=== PATIENT | female | born 1990 | race Caucasian/White ===

== ENCOUNTER 2016-08-05 16:19 | Emergency (ER) | payer BC ==
[2016-08-05 17:23] VITALS: BP 120/81
--- NOTE | 2016-08-07 16:24 | UC ---
Terrence Brown Michael, scribed for Mona Man MD on 08/05/16 at 1824 . Abdominal Pain Female HPI - HPI Summary HPI Summary: 25 y/o female comes to [facility] after a colposcopy this morning. Currently c/o vaginal bleeding w/ some clots and cramping. She will be following up with Dr. Barraza and her next OB appointment is on September 09. The pt has an estimated gestational age of 5 weeks, and since the colposcopy she has presented with cramping abd pain and vaginal bleeding. She states passing clots and bled through 2 pads. The pt denies DEAN, cough, sore throat, dysuria, and rash. - History of Current Complaint Chief Complaint: UCGeneralIllness Stated Complaint: PREG-VAG BLEEDING/PAIN Time Seen by Provider: 08/05/16 17:09 Hx Obtained From: Patient, Medical Records ?: Yes Onset/Duration: Sudden Onset, Still Present Severity Initially: Moderate Severity Currently: Moderate Pain Intensity: 5 Pain Scale Used: 0-10 Numeric Radiates: No Character: Cramping Associated Signs and Symptoms: Positive: Negative - No DEAN. no cough. no sore throat. no dysuria. no rash., Vaginal Bleeding Allergies/Adverse Reactions: Allergies Allergy/AdvReac Type Severity Reaction Status Date / Time Azithromycin Allergy VOMITING, Verified 08/05/16 17:17 SEVERE ABDOMINAL CRAMPS Cat Hair Extract Allergy Sneezing Verified 08/05/16 17:17 Doxycycline Allergy Unknown Verified 08/05/16 17:17 Reaction Details Dust Mite Extract Allergy Sneezing Verified 08/05/16 17:17 Molds & Smuts Allergy Runny Nose Verified 08/05/16 17:17 Pollen Extract Allergy Sneezing Verified 08/05/16 17:17 Shellfish Allergy Allergy SHARP PAIN Verified 08/05/16 17:17 IN CHEST AND SHORTNESS OF BREATH Home Medications: Home Medications Amitriptyline TAB* [Elavil TAB*] 10 mg PO 08/05/16 [History] Hyoscyamine ER (NF) [Levbid (NF)] 08/05/16 [History] LevoCETirizine TAB (NF) [Xyzal TAB (NF)] 1 tab DAILY 08/05/16 [History Confirmed 08/05/16] Vitamin [Calna] 1 tab DAILY 08/05/16 [History Confirmed 08/05/16] PMH/Surg Hx/FS Hx/Imm Hx Previously Healthy: Yes Endocrine History Of: Denies: Diabetes Cardiovascular History Of: Denies: Hypertension, Congestive Heart Failure Respiratory History Of: Reports: Asthma, Bronchitis - X 4 IN 2011 GI/ History Of: Denies: Renal Disease Neurological History Of: Reports: Migraine - 4 PER MONTH/ PRN AXERT - Surgical History Surgical History: Yes Surgery Procedure, Year, and Place: LOCAL- FOR REMOVAL MOLES. WISDOM TEETH. Tonsils - Family History Known Family History: Positive: None Family History: no anesthesia reaction - Social History Occupation: Employed Full-time Lives: With Family Alcohol Use: None Substance Use Type: None Smoking Status (MU): Never Smoked Tobacco - Immunization History Most Recent Influenza Vaccination: None Most Recent Tetanus Shot: UTD Most Recent Pneumonia Vaccination: N/A Review of Systems Constitutional: Fatigue Skin: Rash Eyes: Negative ENT: Negative Respiratory: Negative Cardiovascular: Negative Gastrointestinal: Abdominal Pain Genitourinary: Other - vaginal bleeding Motor: Negative Neurovascular: Negative Musculoskeletal: Negative Neurological: Negative Psychological: Negative All Other Systems Reviewed And Are Negative: Yes Physical Exam Triage Information Reviewed: Yes Appearance: Well-Nourished Vital Signs: Initial Vital Signs Temp 99.2 F 08/05/16 17:17 Pulse 89 08/05/16 17:17 Resp 18 08/05/16 17:17 BP 120/81 08/05/16 17:17 Pulse Ox 100 08/05/16 17:17 Vital Signs Reviewed: Yes Eye Exam: Normal ENT Exam: Normal Neck exam: Normal - no adenopathy appreciated. Respiratory Exam: Normal Respiratory: Positive: Chest non-tender, Lungs clear, Normal breath sounds, Other: - no dyspnea. no tachypnea. nml repiratory rate. Cardiovascular: Positive: RRR, No Murmur, Pulses Normal, Brisk Capillary Refill Abdomen Description: Positive: No Organomegaly, Soft. Negative: Nontender - lower pelvis-diffuse tenderness with no rebound or guarding., CVA Tenderness (R) , CVA Tenderness (L) Bowel Sounds: Positive: Present Musculoskeletal Exam: Normal Musculoskeletal: Positive: Strength Intact Neurological Exam: Normal - nonfocal. grossly intact. Psychological Exam: Normal - conversing easily Psychological: Positive: Age Appropriate Behavior Skin Exam: Normal - no rashes but several moles incidentally noticed (following pu with her telegraph mechanic) Abd Pain Female Course/Dx - Course Course Of Treatment: Urine Analysis results-[id number] and pt is in the bathroom 1809. Consulted with Aleida Castro at 1809 about transfer to [facility] [place] [facility]. POC Urine -positive. Advise Emergency Department eval and treatment. EMS encouraged, bu Ms. Multani politely but firmly declines. Family will drive. AMA for EMS. Questions answered to the best of my ability. - Differential Dx/Diagnosis Provider Diagnoses: Vaginal bleeding in Discharge - Discharge Plan Condition: Stable Disposition: AGAINST MEDICAL ADVICE Referrals: Mode Ramirez MD [Primary Care Provider] - The documentation as recorded by the Terrence stevens Michael accurately reflects the service I personally performed and the decisions made by me, Mona Man MD.
== END 2016-08-05 18:32 | disposition left against medical advice (07) ==
LOC: UCEAST 16:19
DX: O20.9 Hemorrhage in early pregnancy, unspecified (principal); G43.909 Migraine, unspecified, not intractable, without status migrainosus; Z88.3 Allergy status to other anti-infective agents; Z91.013 Allergy to seafood; J45.909 Unspecified asthma, uncomplicated; Z87.09 Personal history of other diseases of the respiratory system; Z3A.01 Less than 8 weeks gestation of pregnancy
CPT/HCPCS: 84702; 99212; G0463

== ENCOUNTER 2016-08-05 18:51 | Emergency (ER) | payer BC ==
[2016-08-05] MEDS ORDERED: Acetaminophen TAB* 325 MG PO ONE (20:30)
[2016-08-05] MEDS ORDERED: HYDROcodone/ACETAMIN 5-325 MG* 1 TAB PO ONE (20:57)
[2016-08-05 21:12] VITALS: BP 100/66
--- NOTE | 2016-08-06 00:45 | ED ---
- HPI Summary HPI Summary: Patient arrives to ED 5 weeks and sent here by with CC of vaginal bleeding. She had a colposcopy this morning without a biopsy perfomed by Dr Barraza. She states she had some bleeding 5 days ago after intercourse which was a "moderate" amount. The last few days she notes to minimal spotting. Today, s /p colposcopy she had a moderate amount of bleeding. She states she bled through 2 panty liners. Denies DEAN, weakness, fever, chills or sweats. She has 5/10 pain with cramping in her lower abdomen which does not radiate. - History of Current Complaint Chief Complaint: EDAbdPain Stated Complaint: CRAMPING AND BLEEDING Time Seen by Provider: 08/05/16 19:55 Hx Obtained From: Patient Chief Complaint: Concern for Embryonic Dem, Pain, Vaginal Bleeding Onset/Duration: Started Days Ago Timing: Intermittent Severity: Moderate Current Severity: Moderate Pain Intensity: 4 Location of Pain: Left Side, Groin, Suprapubic Character: None Aggravating Factors: [place] Alleviating Factors: Heat Associated Signs and Symptoms: Positive: Vaginal Bleeding or Discharge - Assessment Hx Now: Yes - Allergies/Home Medications Allergies/Adverse Reactions: Allergies Allergy/AdvReac Type Severity Reaction Status Date / Time Azithromycin Allergy VOMITING, Verified 08/05/16 17:17 SEVERE ABDOMINAL CRAMPS Cat Hair Extract Allergy Sneezing Verified 08/05/16 17:17 Doxycycline Allergy Unknown Verified 08/05/16 17:17 Reaction Details Dust Mite Extract Allergy Sneezing Verified 08/05/16 17:17 Molds & Smuts Allergy Runny Nose Verified 08/05/16 17:17 Pollen Extract Allergy Sneezing Verified 08/05/16 17:17 Shellfish Allergy Allergy SHARP PAIN Verified 08/05/16 17:17 IN CHEST AND SHORTNESS OF BREATH PMH/Surg Hx/FS Hx/Imm Hx Previously Healthy: Yes Endocrine/Hematology History: Reports: Hx Anemia - HX OF IN THE PAST Denies: Hx Diabetes Cardiovascular History: Denies: Hx Congestive Heart Failure, Hx Hypertension Respiratory History: Reports: Hx Asthma History: Denies: Hx Renal Disease Sensory History: Denies: Hx Contacts or Glasses, Hx Hearing Aid Opthamlomology History: Denies: Hx Contacts or Glasses Neurological History: Reports: Hx Migraine - 4 PER MONTH/ PRN AXERT - Surgical History Surgery Procedure, Year, and Place: LOCAL- FOR REMOVAL MOLES. WISDOM TEETH. Tonsils Hx Anesthesia Reactions: No Infectious Disease History: No Infectious Disease History: Denies: Traveled Outside the [place] in Last 30 Days - Social History Occupation: Employed Full-time Lives: With Family Alcohol Use: None Hx Substance Use: No Substance Use Type: Reports: None Hx Tobacco Use: No Smoking Status (MU): Never Smoked Tobacco Review of Systems Constitutional: Negative Cardiovascular: Negative Respiratory: Negative Positive: Abdominal Pain Positive: see HPI, other - vaginal bleeding Musculoskeletal: Negative Skin: Negative Neurological: Negative Positive: Anxious All Other Systems Reviewed And Are Negative: Yes Physical Exam - Physical Exam Triage Information Reviewed: Yes Vital Signs Reviewed: Yes Appearance: Positive: Well-Appearing, Well-Nourished Skin: Positive: Warm, Skin Color Reflects Adequate Perfusion Head/Face: Positive: Normal Head/Face Inspection Eyes: Positive: JUAN DAVID, Conjunctiva Clear ENT: Positive: Normal ENT inspection Neck: Positive: Supple, No Lymphadenopathy Respiratory/Lung Sounds: Positive: Clear to Auscultation, Breath Sounds Present Cardiovascular: Positive: Normal, RRR Abdomen Description: Positive: Soft, Other: - tenderness over LLQ and suprapubic tenderness Musculoskeletal: Positive: Normal Neurological: Positive: Normal, Sensory/Motor Intact, Speech Normal Psychiatric: Positive: Normal AVPU Assessment: Alert - [place] Coma Scale Eye: 4 - Spontaneous Motor: 6 - Obeys Commands Verbal: 5 - Oriented Coma Scale Total: 15 Diagnostics - Vital Signs Vital Signs Temp Pulse Resp BP Pulse Ox 08/05/16 21:19 98.1 F 89 16 100/66 08/05/16 20:00 98.1 F 90 16 100/66 97 08/05/16 18:56 98.4 F 91 20 115/67 100 - Laboratory Lab Statement: Any lab studies that have been ordered have been reviewed, and results considered in the medical decision making process. Course/Dx - Course Course Of Treatment: Dr Santo called for consult. Stated d/t patient recent colposcopy and 5 week status, to not use transvaginal US for look for IUP. Patient agrees to wait until her appt on Monday morning. Return precautions given for worsening bleeding or pain to return to ED. Pain medication given. Vaginal rest. - Differential Diagnosis/HQI/PQRI: Incomplete , Missed , Spontaneous , Vaginal Bleeding - Diagnoses Provider Diagnoses: Vaginal bleeding Discharge - Discharge Plan Condition: Stable Disposition: HOME Patient Education Materials: First Trimester Vaginal Bleed (ED) Referrals: Mode Ramirez MD [Primary Care Provider] - Additional Instructions: Tylenol or hydrocodone as needed for discomfort. If you develop worsening pain or cramping or soaking through >2 pads per hours, please come back to ED Keep appt Monday. Vaginal rest. Take it easy this weekend.
== END 2016-08-05 21:19 | disposition home or self-care (01) ==
LOC: ED 18:51
DX: O46.91 Antepartum hemorrhage, unspecified, first trimester (principal); Z3A.01 Less than 8 weeks gestation of pregnancy; R10.9 Unspecified abdominal pain
CPT/HCPCS: 99282

== ENCOUNTER 2017-11-27 00:46 | Inpatient (IN) | payer BC ==
--- NOTE | 2017-11-27 02:18 | HP ---
General Information - Reason for Visit labor - General Information Maternal Age: 26 Grav: 2 Para: 0 SAB: 1 IEA: 0 Estimated Due Date: 11/29/17 Determined By: LMP Gestational Age in Weeks/Days: 39w 5 d Maternal Blood Type and Rh: A Positive - Results this Serology/RPR Result: Non-Reactive Rubella Result: Immune HBsAg Result: Negative HIV Result: Negative GBS Culture Result: Negative Past Medical History Past Medical History Comment: GERD Migraine Asthma Past Surgical History Comment: tonsillectomy 05/2013 lap appendectomy 03/2017 Pertinent Family History: See Records - Antepartal Records Antepartal Records: Reviewed, Complicated by: - recurrent flank pain Review of Systems Constitutional: Uncomfortable CV Complaint: No Respiratory: Shortness of Breath: No Gastrointestinal: Nausea Genitourinary: No Leaking Fluid Musculoskeletal: Contractions Neurological: No Headache Movement: Normal Exam Allergies/Adverse Reactions: Allergies azithromycin Allergy (Severe, Verified 11/27/17 01:31) Abdominal Pain cat dander Allergy (Verified 11/27/17 01:32) Sneezing doxycycline Allergy (Verified 11/27/17 01:32) Unknown Reaction Details mold Allergy (Verified 11/27/17 01:39) Runny Nose pollen extracts Allergy (Verified 11/27/17 01:40) Sneezing shellfish derived Allergy (Verified 11/27/17 01:40) Pain - Measurements Height: 5 ft 7 in Weight: 174 lb Weight in lbs: 174.383720 Body Mass Index (BMI): 27.2 Pre- Weight: 134 lb Weight Gained This : 40 lbs and 0 ozs - Exam Breast: - - soft, no masses Extremities: No Edema Heart: Normal Rhythm/Heart Sounds HEENT: No Significant Findings Lungs: Clear Bilaterally Thyroid: No Thyromegaly Targeted Exam Findings See L&D Outpatient Visit Provider Note for Findings: N/A Cervical Exam: 7cm Effacement: 100% Station: -1 Presenting Part: Vertex Membrane Status: Bulging EFM Findings - External Monitor Findings Baseline Heart Rate: 130 External Monitor Findings: Accelerations Present, No Pattern of Variable or Late Decelerations, Variability Moderate External Monitor Findings Comment: category 1 Contractions: Regular, Strong, 45-90 Seconds Contraction Frequency: every 3-4 min Assessment/Plan - Assessment primip at 39 wk 5 days in labor - Plan Plan: Admit - Anticipate Vaginal Delivery - Date/Time of Admission Date of Admission: 11/27/17 Time of Admission: 01:20
[2017-11-27] MEDS ORDERED: Ibuprofen TAB* 600 MG ONE (02:51)
[2017-11-27] MEDS ORDERED: OXYTOCIN* 10 UNITS/ML 1 ML VIAL IM ONE (03:12)
[2017-11-27] MEDS ORDERED: Glycerin ADULT SUPP PR PRN (03:12)
--- NOTE | 2017-11-27 03:20 | PROCNOTE ---
[facility] OB: Delivery Note - Nursery Level of Nursery: Regular/Bedside - Perineum Perineal Injury: 2nd Degree Perineal Repair: By Delivering Practioner - Additional Delivery Notes Additional Delivery Notes: SVB LMC, OA, over 2nd degree perineal lac. Infant pink with stimulation. Placenta Hubert. FF with massage, Pitocin 10 units IM given. Laceration repaired with 3-0 ccg under 1% lidocaine local injection. Straight cathed after delivery for 200cc clear yellow urine. Continue to complain of bladder discomfort and fullness, will insert Still and leave in overnight. with Apgars 9/9. Placenta intact, lateral insertion. EBL 200cc
[2017-11-27] MEDS ORDERED: OXYTOCIN* 10 UNITS/ML 1 ML VIAL ONE (03:32)
[2017-11-27] MEDS: Acetaminophen TAB* 325 MG PO PRN ×4 (07:42→21:47)
[2017-11-27] MEDS: Docusate CAP* 100 MG PO SCH ×3 (07:43→20:54)
[2017-11-27] MEDS: Ibuprofen TAB* 600 MG PO PRN ×3 (09:16→20:55)
[2017-11-27] MEDS: Witch Hazel PAD* JAR TOPICAL PRN (10:00)
[2017-11-27] MEDS: Dibucaine 1% 28.35 GM TUBE PR PRN (10:00)
[2017-11-28] MEDS: Ibuprofen TAB* 600 MG PO PRN ×3 (03:38→15:48)
[2017-11-28] MEDS: Acetaminophen TAB* 325 MG PO PRN ×2 (03:38→20:40)
[2017-11-28 07:19] LABS: ABS Basophils 0 10^3/ul (0-0.2); ABS Eosinophils 0.1 10^3/ul (0-0.6); ABS Lymphocytes 2.2 10^3/ul (1.0-4.8); ABS Monocytes 0.6 10^3/ul (0-0.8); ABS Neutrophils 8.5 10^3/ul (1.5-7.7); ABS Nucleated RBC 0 10^3/ul; Eosinophil % 1.2 % (0-6); Hematocrit 34 % (35-47); Hemoglobin 11.5 g/dl (12.0-16.0); Lymphocyte % 18.8 % (25-47); Mean Corpuscular HGB Conc 34 g/dl (31-36); Mean Corpuscular Hemoglobin 33 pg (27-31); Mean Corpuscular Volume 97 fL (80-97); Mean Platelet Volume 8.4 um3 (7.4-10.4); Nucleated Red Blood Cells % 0; Platelet Count 187 10^3/ul (150-450); Red Blood Count 3.51 10^6/ul (4.00-5.40); Red Cell Distribution Width 13 % (10.5-15); White Blood Count 11.5 10^3/ul (3.5-10.8)
[2017-11-28] MEDS: Docusate CAP* 100 MG PO SCH ×3 (08:54→20:40)
[2017-11-28] MEDS: Ferrous Gluconate TAB* 324 MG TAB PO SCH ×2 (09:18→23:55)
[2017-11-28] MEDS: Witch Hazel PAD* JAR TOPICAL PRN (16:06)
[2017-11-29] MEDS: Ibuprofen TAB* 600 MG PO PRN ×3 (01:11→14:41)
--- NOTE | 2017-11-29 06:58 | PTEDU ---
Patient Name: SHARON FELIPE MATTEO, EDMARDIANNE selected video: Follow Me Mum: The Guy to Successful to view on 018 at 6:57:02 AM from [email or web address]
--- NOTE | 2017-11-29 07:17 | PTEDU ---
Patient Name: SHARON FELIPE SHARON FELIPE selected video: BBOB: Nurturing Your Gorgeous &Growing Baby by to view on 11/29/2017 at 7:16:41 AM [id number]
[2017-11-29 08:01] VITALS: BP 135/91
[2017-11-29] MEDS: Docusate CAP* 100 MG PO SCH ×2 (08:03→14:41)
[2017-11-29] MEDS: Dibucaine 1% 28.35 GM TUBE PR PRN ×2 (08:19→18:12)
[2017-11-29] MEDS: Witch Hazel PAD* JAR TOPICAL PRN (17:12)
[2017-11-29] MEDS: Ferrous Gluconate TAB* 324 MG TAB PO SCH (18:12)
== END 2017-11-29 18:16 | disposition home or self-care (01) | DRG 560 ==
LOC: MCHOBOUT 00:46 → MCHOB 01:25
PROVIDERS: ADMIT Midwife; ATTEND Midwife
PROC: 10E0XZZ Delivery of Products of Conception, External Approach (ICD-10-PCS; principal; 2017-11-27)
PROC: 0KQM0ZZ Repair Perineum Muscle, Open Approach (ICD-10-PCS; 2017-11-27)
DX: O99.52 Diseases of the respiratory system complicating childbirth (principal); J45.909 Unspecified asthma, uncomplicated; O70.1 Second degree perineal laceration during delivery; Z3A.39 39 weeks gestation of pregnancy; Z37.0 Single live birth
CPT/HCPCS: 36415; 85025; A9270-GY; J2590

== ENCOUNTER 2020-08-23 02:44 | Inpatient (IN) ==
[2020-08-23] MEDS ORDERED: Lactated Ringers 1000 ml BAG 1,000 ML IV ONE (03:29)
[2020-08-23] MEDS ORDERED: Buffered Lidocaine 1% SYRIN 1 ml INTRADERM ONE (03:29)
[2020-08-23] MEDS ORDERED: Lactated Ringers 1000 ml BAG 1,000 ML IV SCH ×2 (04:00→08:00)
[2020-08-23 04:04] LABS: Urine Benzodiazepine Screen None Detected (None Detect); Urine Cannabinoids Screen None Detected (None Detect); Urine Opiates Screen None Detected (None Detect)
[2020-08-23] MEDS ORDERED: Glycerin ADULT 2.4 gm SUPP PR PRN (07:16)
[2020-08-23] MEDS ORDERED: Witch Hazel PAD JAR TOPICAL PRN (07:16)
[2020-08-23] MEDS: Dibucaine 1% OINT 28.35 GM TUBE PR PRN ×2 (08:26→20:43)
[2020-08-23] MEDS ORDERED: Lidocaine 1% VIAL 10 MG/ML VIAL ONE (18:05)
[2020-08-24 06:50] LABS: ABS Basophils 0.1 10^3/ul (0-0.2); ABS Eosinophils 0.1 10^3/ul (0-0.6); ABS Lymphocytes 1.7 10^3/ul (1.0-4.8); ABS Monocytes 0.6 10^3/ul (0-0.8); ABS Neutrophils 8.8 10^3/ul (1.5-7.7); Eosinophil % 0.6 %; Hematocrit 33 % (35-47); Hemoglobin 11.5 g/dL (12.0-16.0); Lymphocyte % 15.2 %; Mean Corpuscular HGB Conc 35 g/dL (31-36); Mean Corpuscular Hemoglobin 33 pg (27-31); Mean Corpuscular Volume 97 fL (80-97); Mean Platelet Volume 7.8 fL (7.4-10.4); Platelet Count 194 10^3/uL (150-450); Red Blood Count 3.45 10^6 /uL (3.70-4.87); Red Cell Distribution Width 13 % (10-15); White Blood Count 11.3 10^3/uL (3.5-10.8)
[2020-08-24 08:06] VITALS: BP 96/58
[2020-08-24] MEDS: Dibucaine 1% OINT 28.35 GM TUBE PR PRN (09:34)
== END 2020-08-24 14:11 | disposition home or self-care (01) | DRG 560 ==
LOC: MCHOBOUT 02:44 → MCHOB 03:23
PROVIDERS: ADMIT Midwife; ATTEND Midwife